=== PATIENT | female | born 1975 | race Caucasian/White ===

== ENCOUNTER 2017-05-13 17:48 | Emergency (ER) | payer MEDICAID ==
[2017-05-13] MEDS: TETRACAINE 0.5% 4 ML OPH RIGHT EYE (21:00)
[2017-05-13] MEDS: FLUORESCEIN STRIP RIGHT EYE (21:00)
[2017-05-13] MEDS: OPHTHALMIC IRRIG SOLUTION 120 ML RIGHT EYE (22:58)
== END 2017-05-13 23:09 | disposition home or self-care (01) ==
LOC: FTE 23:09
DX: H57.8 Other specified disorders of eye and adnexa (principal)
CPT/HCPCS: 99283; Z7610